=== PATIENT | female | born 1970 | race Caucasian/White ===

== ENCOUNTER 2016-11-21 09:46 | Emergency (ER) | payer MEDICAID, OTHER ==
[~2016-11-21 09:46] MED LIST: AMLO5TAB2 PO; ATOR10TA15 PO; AZAT50 PO; BUSP10TA PO; COLA100C3 PO; DIPHENOXYLATE PO; IPRA17I INH; LISI10TA3 PO; NORC5TAB PO; OMEP20CA2 PO; OXYGENTANK NAS.CANULA; PRED10 PO; SYMB160A INH; VENTAER INH; VITA100018 PO; ZITH250T PO; [UNRECOGNIZED DRUG - OTHER] PO
[2016-11-21 09:51] VITALS: BP 144/67; PULSE 108; RESP 28; TEMP 98.6; O2SAT 84
[2016-11-21] MEDS ORDERED: MAGN400T24 (10:04)
[2016-11-21 10:20] VITALS: RESP 24; O2SAT 90
--- NOTE | 2016-11-21 10:23 | PD ---
HPI Chief Complaint: Respiratory Distress Time Seen by Provider: 10:12 Travel History International Travel<30 days: No Contact w/Intl Traveler<30days: No Traveled to known affect area: No History of Present Illness HPI This is a 46-year-old female who presents to the emergency department with shortness of breath. She has a history of severe COPD and has oxygen at home although she has not needed to use it recently. She says on Wednesday she developed right sided pleuritic chest pain that's been intermittent, moderate severity, feeling like a stabbing in her chest. She has had a little productive cough but she doesn't recall what the sputum looks like. She has felt more short of breath lately. She took her oxygen reading on Wednesday and it was 82 which surprised her. She's not been getting any better so she presents to the emergency department. She does feel like her left ankle is a little bit swollen. She has felt some chills and has been sweating overnight. PFSH Past Medical History Autoimmune Disease: Yes (CROHN'S DISEASE) Anxiety: Yes Depression: No Heart Rhythm Problems: No Cancer: No Cardiovascular Problems: Yes High Cholesterol: Yes Chest Pain: No Congestive Heart Failure: Yes Diabetes: No Gastrointestinal Disorders: Yes GERD: No Genitourinary: No Hiatal Hernia: No Hypertension: Yes Immune Disorder: No Musculoskeletal: No Neurologic: No Psychiatric: No Reproductive: No Respiratory: No Thyroid Disease: No Ulcer: No ?: Not : 2 Para: 2 Tubal Ligation: Yes Past Surgical History Abdominal Surgery: Yes (COLON RESECTION X 2) AICD: No Arteriovenous Shunt: No Cardiac Surgery: No Section: Yes (X 1) Cholecystectomy: Yes Ear Surgery: No Endocrine Surgery: No Eye Surgery: No Genitourinary Surgery: No Gynecologic Surgery: No Insulin Pump: No Joint Replacement: No Oral Surgery: No Pacemaker: No Thoracic Surgery: No Other Surgery: Yes Social History Alcohol Use: No Tobacco Use: Yes (1 PPD) Substance Use: No Allergies-Medications (Allergen,Severity, Reaction): Coded Allergies: Aspirin (Verified Adverse Reaction, Severe, Bleeding, 11/21/16) "I HAVE CROHNS DISEASE" Reported Meds & Prescriptions Reported Meds & Active Scripts Active Atrovent HFA 12.9 GM Inh (Ipratropium [place]) 17 Mcg/Act Aer 2 Puff INH Q6HR PRN [place] (Hydrocodone-Acetaminophen) 5-325 mg Tab 1 Tab PO Q6H PRN Symbicort Inh (Budesonide/Formoterol Fumarate) 160-4.5 Mcg/Act Aero 2 Puff INH Q12HR 30 Days Oxygen tank (Oxygen) 1 Ea Tank 2 Liter [employer] CONTINUOUS Oxygen Concentrator Portable Gaseous 2 L/min via Nasal Cannula Continuous For 99 months npi [id number] Reported Magnesium (Magnesium Oxide) 400 Mg Tablet Omeprazole 20 Mg Cap 20 Mg PO DAILY [Diphenoxylate/A1] 1 PO DAILY Atorvastatin (Atorvastatin Calcium) 10 Mg Tab 10 Mg PO DAILY Buspirone (Buspirone HCl) 10 Mg Tab 10 Mg PO DAILY Review of Systems Except as stated in HPI: all other systems reviewed are Neg Physical Exam Narrative GENERAL: Frail female in no acute distress. SKIN: Focused skin assessment warm and dry. HEAD: Atraumatic. Normocephalic. EYES: Pupils equal and round. No injection or drainage. ENT: Moist mucous membranes NECK: Trachea midline. CARDIOVASCULAR: Regular rate and rhythm. No murmur appreciated. RESPIRATORY: Near absent breath sounds bilaterally, speaking full sentences, appears comfortable GASTROINTESTINAL: Abdomen soft, non-tender, nondistended. MUSCULOSKELETAL: Tender to palpation of the left calf with no obvious swelling NEUROLOGICAL: Awake and alert. No obvious cranial nerve deficits. Moving all extremities. PSYCHIATRIC: Appropriate mood and affect; insight and judgment normal. Data Data Last Documented VS Vital Signs Date Time Temp Pulse Resp B/P Pulse Ox O2 Delivery O2 Flow Rate FiO2 11/21/16 10:20 96 Nasal Cannula 3 11/21/16 10:20 24 11/21/16 09:51 98.6 108 144/67 Orders Complete Blood Count With Diff (11/21/16 10:17) Comprehensive Metabolic Panel (11/21/16 10:17) B-Type Natriuretic Peptide (11/21/16 10:17) D-Dimer (11/21/16 10:17) Troponin I (11/21/16 10:17) Iv Access Insert/Monitor (11/21/16 10:17) Electrocardiogram (11/21/16 10:17) Ecg Monitoring (11/21/16 10:17) Oximetry (11/21/16 10:17) Oxygen Administration (11/21/16 10:17) Chest, Single Ap (11/21/16 10:17) Sodium Chloride 0.9% Flush (Ns Flush) (11/21/16 10:30) Methylprednisolone So Succ Inj (Solumedr (11/21/16 10:30) Albuterol-Ipratropium Neb (Duoneb Neb) (11/21/16 10:30) Labs Laboratory Tests Test 11/21/16 10:20 White Blood Count 7.3 TH/MM3 Red Blood Count 4.38 MIL/MM3 Hemoglobin 13.4 GM/DL Hematocrit 40.4 % Mean Corpuscular Volume 92.2 FL Mean Corpuscular Hemoglobin 30.5 PG Mean Corpuscular Hemoglobin 33.1 % Concent Red Cell Distribution Width 13.1 % Platelet Count 232 TH/MM3 Mean Platelet Volume 8.8 FL Neutrophils (%) (Auto) 82.7 % Lymphocytes (%) (Auto) 8.2 % Monocytes (%) (Auto) 8.4 % Eosinophils (%) (Auto) 0.4 % Basophils (%) (Auto) 0.3 % Neutrophils # (Auto) 6.1 TH/MM3 Lymphocytes # (Auto) 0.6 TH/MM3 Monocytes # (Auto) 0.6 TH/MM3 Eosinophils # (Auto) 0.0 TH/MM3 Basophils # (Auto) 0.0 TH/MM3 CBC Comment DIFF FINAL Differential Comment D-Dimer Quantitative (PE/DVT) 0.28 MG/L FEU Sodium Level 141 MEQ/L Potassium Level 3.3 MEQ/L Chloride Level 100 MEQ/L Carbon Dioxide Level 35.5 MEQ/L Anion Gap 6 MEQ/L Blood Urea Nitrogen 10 MG/DL Creatinine 0.55 MG/DL Estimat Glomerular Filtration 120 ML/MIN Rate Random Glucose 112 MG/DL Calcium Level 8.4 MG/DL Total Bilirubin 0.5 MG/DL Aspartate Amino Transf 21 U/L (AST/SGOT) Alanine Aminotransferase 28 U/L (ALT/SGPT) Alkaline Phosphatase 87 U/L Troponin I LESS THAN 0.02 NG/ML B-Type Natriuretic Peptide 75 PG/ML Total Protein 7.0 GM/DL Albumin 3.4 GM/DL MDM Medical Decision Making Medical Screen Exam Complete: Yes Emergency Medical Condition: Yes Interpretation(s) afebrile, tachycardia, tachypneic, hypoxic on room air No leukocytosis Mild hypokalemia Troponin is normal BNP is 75 D-dimer is 0.28 Last 24 hours Impressions Chest X-Ray 11/21/16 1017 Signed Impressions: Service Date/Time: Monday, November 21, 2016 10:28 - CONCLUSION: No acute disease. Flavio Brooke MD Differential Diagnosis COPD exacerbation, pulmonary embolism, pneumonia, congestive heart failure, myocardial infarction Narrative Course This is a 46 year old female with a history of COPD who is supposed be on oxygen but hasn't needed it in several months who presents to the emergency department with increasing shortness of breath and right sided pleuritic pain. She has very poor air movement on exam. She is hypoxic on room air but has oxygen saturation of 92-95% on 2 L. She was given bronchodilator treatments and steroids. Labs are obtained which demonstrate a normal white blood cell count, a normal BNP and a normal d-dimer. Chest x-ray is negative for pneumonia. She appears much better following bronchodilator treatments. 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 I think patient is appropriate for outpatient therapy as long as she uses her oxygen which she agrees to. Patient will be discharged on prednisone, azithromycin and given a refill on her albuterol inhaler. Diagnosis Primary Impression: COPD exacerbation Patient Instructions: General Instructions Additional Instructions: If you develop severe shortness of breath, chest pain, or difficulty breathing return to the emergency department. Use albuterol every 4 hours for the next 2 days. Then use as needed for wheezing. Complete your course of steroids. Complete your course of antibiotics. Follow up with your primary care physician in 2-3 days if your symptoms have not improved. Med/Other Pt SpecificInfo: Prescription(s) given Scripts Azithromycin 250 Mg Hhs832 Mg PO DIRECTED #6 TAB Take 2 tabs (500 mg) on day 1 then 1 tab daily x 4 days. Prov:Bonnie Malcolm MD 11/21/16 Albuterol 8.5 GM Inh (Proair Hfa 8.5 GM Inh)90 Mcg/Act Aer2 Puff INH Q4-6H PRN ( SHORTNESS OF BREATH) #1 INHALER 108 mcg/actuation Prov:Bonnie Malcolm MD 11/21/16 Prednisone 20 Mg Tab40 Mg PO DAILY 4 Days Prov:Bonnie Malcolm MD 11/21/16 Disposition: 01 DISCHARGE HOME Condition: Stable Bonnie Malcolm MD Nov 21, 2016 10:23
[2016-11-21] MEDS: RESP: ALBUTEROL 2.5 MG/IPRATROPIUM 0.5 MG NEB (SCH) INH (10:27)
[2016-11-21] MEDS ORDERED: methylPREDNISolone SOD SUCC 125 MG/2 ML VIAL IVP ONE (10:30)
[2016-11-21] MEDS ORDERED: SODIUM CHLORIDE 0.9% FLUSH 10 ML FLUSH IVF PRN (10:30)
--- NOTE | 2016-11-21 10:32 | RADRPT ---
EXAM DATE/TIME: 11/21/2016 10:28 [facility] COMPARISON: CHEST SINGLE AP, March 19, 2016, 18:39. INDICATIONS : Right sided chest pain. MEDICAL HISTORY : None. SURGICAL HISTORY : None. ENCOUNTER: Initial ACUITY: 3 days PAIN SCORE: 9/10 LOCATION: Right chest FINDINGS: Hyperinflation. Heart and mediastinal contours are normal. The lungs are clear. Osseous structures ar e intact. CONCLUSION: No acute disease. Flavio Brooke MD on November 21, 2016 at 10:29 Board Certified Radiologist. This report was verified electronically.
[2016-11-21 10:45] LABS: AUTOMATED NEUTROPHIL # 6.1 TH/MM3 (1.8-7.7); BASOPHIL % 0.3 % (0.0-2.0); EOSINOPHIL % 0.4 % (0.0-4.0); HEMATOCRIT 40.4 % (35.0-46.0); HEMO FLAGS DIFF FINAL; LYMPH % 8.2 % (9.0-44.0); LYMPHOCYTE # 0.6 TH/MM3 (1.0-4.8); MEAN CELL VOLUME 92.2 FL (80.0-100.0); MEAN CORPUSCULAR HEMOGLOBIN 30.5 PG (27.0-34.0); MEAN CORPUSCULAR HGB CONC 33.1 % (32.0-36.0); MONO % 8.4 % (0.0-8.0); NEUT % 82.7 % (16.0-70.0); PLATELET COUNT 232 TH/MM3 (150-450); RED BLOOD COUNT 4.38 MIL/MM3 (4.00-5.30); RED CELL DISTRIBUTION WIDTH 13.1 % (11.6-17.2); WHITE BLOOD COUNT 7.3 TH/MM3 (4.0-11.0)
[2016-11-21 10:57] LABS: ALT (GPT) 28 U/L (10-53); ANION GAP 6 MEQ/L (5-15); AST (GOT) 21 U/L (15-37); BICARBONATE 35.5 MEQ/L (21.0-32.0); BLOOD UREA NITROGEN 10 MG/DL (7-18); CHLORIDE 100 MEQ/L (98-107); GLOMERULAR FILTRATION RATE 120 ML/MIN (>89); POTASSIUM 3.3 MEQ/L (3.5-5.1); SODIUM (NA) 141 MEQ/L (136-145)
[2016-11-21 11:01] LABS: ALKALINE PHOSPHATASE 87 U/L (45-117); TOTAL BILIRUBIN ADULT 0.5 MG/DL (0.2-1.0)
[2016-11-21] MEDS ORDERED: AZIT250T3 PO (11:32)
[2016-11-21] MEDS ORDERED: PRED20 PO (11:32)
[2016-11-21] MEDS ORDERED: ALBUAER3 INH (11:32)
[2016-11-21 11:35] VITALS: BP 130/77; TEMP 97.8
--- NOTE | 2016-11-22 13:31 | EKG ---
Date Performed: 11/21/2016 Time Performed: 10:39:00 PTAGE: 46 years EKG: Sinus rhythm ST DEVIATION AND MODERATE T-WAVE ABNORMALITY, CONSIDER ANTERIOR ISCHEMIA Probable left ventricular h ypertrophy. Compared to previous tracing, there's been an increase in left ventricular voltage and th e tracing now meets criteria for left ventricular hypertrophy. There's been some variation in the ST- T wave changes. ABNORMAL ECG PREVIOUS TRACING : 03/19/2016 20.37 DOCTOR: Olimpia Fernandez Interpretating Date/Time 11/22/2016 13:27:44
== END 2016-11-21 11:35 | disposition home or self-care (01) ==
LOC: NEPE 09:46
DX: J44.1 Chronic obstructive pulmonary disease with (acute) exacerbation (principal); R07.81 Pleurodynia; M79.662 Pain in left lower leg; R61 Generalized hyperhidrosis; R68.83 Chills (without fever); R94.31 Abnormal electrocardiogram [ECG] [EKG]; I10 Essential (primary) hypertension; E78.00 Pure hypercholesterolemia, unspecified; F17.200 Nicotine dependence, unspecified, uncomplicated; Z87.09 Personal history of other diseases of the respiratory system; Z86.2 Personal history of diseases of the blood and blood-forming organs and certain disorders involving the immune mechanism; Z86.79 Personal history of other diseases of the circulatory system; Z87.19 Personal history of other diseases of the digestive system
CPT/HCPCS: 71010; 80053; 83880; 84484; 85025; 85379; 93005; 94640; 94664; 96374; 99285; J2930

== ENCOUNTER → 2017-02-10 | Outpatient (CLI) | payer OTHER ==
[~2017-02-10] MED LIST changes: +ALBUAER3 INH; -AMLO5TAB2 PO; -AZAT50 PO; +AZIT250T3 PO; -COLA100C3 PO; -LISI10TA3 PO; +MAGN400T24; -PRED10 PO; +PRED20 PO; -VENTAER INH; -VITA100018 PO; -ZITH250T PO
--- NOTE | 2017-02-10 10:55 | RADRPT ---
EXAM DATE/TIME: 02/10/2017 10:21 [facility] COMPARISON: CT PULMONARY ANGIOGRAM, March 19, 2016, 22:24. CHEST SINGLE AP, March 19, 2016, 18:39. CHEST SI NGLE AP, November 21, 2016, 10:28. INDICATIONS : Short of breath. MEDICAL HISTORY : Hypercholesterolemia. Congestive heart failure. Crohn's disease. SURGICAL HISTORY : Cholecystectomy. section. section. Colon resection. ENCOUNTER: Initial ACUITY: 1 day PAIN SCORE: 0/10 LOCATION: chest FINDINGS: PA and lateral views of the chest demonstrate the lungs to be symmetrically aerated without evidence of mass, infiltrate or effusion. The cardiomediastinal contours are unremarkable. Osseous structure s are intact. CONCLUSION: 1. No acute cardiopulmonary findings. Hill Shah MD on February 10, 2017 at 10:53 Board Certified Radiologist. This report was verified electronically.
--- NOTE | 2017-02-15 10:00 | RSPPFT ---
DATE OF PROCEDURE: 02/10/17 COMMENTS: Spirometry with FVC of 1.0, FEV1 of 0.4, FEV1/FVC ratio at 41%. Slow vital capacity is 38% of predicted. TLC is 80%. Diffusion capacity is 27% and normal when corrected for alveolar volume. IMPRESSION: 1. Very severe airways obstruction. 2. Non-significant response to acutely inhaled bronchodilator. 3. No evidence of airways restriction. 4. Reduced diffusion capacity.
== END ==
LOC: HRSP 08:50
PROVIDERS: ATTEND Internal Medicine Sleep Medicine
DX: J44.9 Chronic obstructive pulmonary disease, unspecified (principal); R06.09 Other forms of dyspnea
CPT/HCPCS: 71020; 94060; 94620; 94726; 94729

== ENCOUNTER 2017-05-03 15:39 | Emergency (ER) | payer OTHER ==
[2017-05-03 15:41] VITALS: BP 164/91; PULSE 112; RESP 18; TEMP 98.2; O2SAT 91
--- NOTE | 2017-05-03 16:43 | PD ---
HPI Chief Complaint: GI Complaint Time Seen by Provider: 16:35 Travel History International Travel<30 days: No Contact w/Intl Traveler<30days: No Traveled to known affect area: No History of Present Illness HPI Please see initial female with history of Crohn's disease with recurrent history of GERD with esophagitis. Patient states recent insurance change which has required her to stop her omeprazole 2 weeks ago, for 1 week, and then she restarted it 20 mg once daily for 1 week, with worsening symptoms of reflux and esophagitis. 2 days ago to increase her dose to 20 mg twice a day. Patient states her symptoms continue to be terrible and feelings of reflux and choking at times. She denies fever, chills, or diarrhea. No changes in her bowels. Patient is seen by a dry drug worker in [place], but has not seen him in some time due to insurance change. Patient states she has had an endoscopy approximately 2 years ago. She is allergic to aspirin. PFSH Past Medical History Autoimmune Disease: Yes (CROHN'S DISEASE) Anxiety: Yes Depression: No Heart Rhythm Problems: No Cancer: No Cardiovascular Problems: Yes High Cholesterol: Yes Chest Pain: No Congestive Heart Failure: Yes Diabetes: No Gastrointestinal Disorders: Yes GERD: No Genitourinary: No Hiatal Hernia: No Hypertension: Yes Immune Disorder: No Musculoskeletal: No Neurologic: No Psychiatric: No Reproductive: No Respiratory: No Thyroid Disease: No Ulcer: No : 2 Para: 2 Tubal Ligation: Yes Past Surgical History Abdominal Surgery: Yes (COLON RESECTION X 2) AICD: No Arteriovenous Shunt: No Cardiac Surgery: No Section: Yes (X 1) Cholecystectomy: Yes Ear Surgery: No Endocrine Surgery: No Eye Surgery: No Genitourinary Surgery: No Gynecologic Surgery: No Insulin Pump: No Joint Replacement: No Oral Surgery: No Pacemaker: No Thoracic Surgery: No Other Surgery: Yes Social History Alcohol Use: No Tobacco Use: Yes (1 PPD) Substance Use: No Allergies-Medications (Allergen,Severity, Reaction): Coded Allergies: aspirin (Unverified Adverse Reaction, Severe, Bleeding, 01/05/17) "I HAVE CROHNS DISEASE" Reported Meds & Prescriptions Reported Meds & Active Scripts Active Azithromycin 250 Mg Tab 250 Mg PO DIRECTED Take 2 tabs (500 mg) on day 1 then 1 tab daily x 4 days. Proair Hfa 8.5 GM Inh (Albuterol Sulfate) 90 Mcg/Act Aer 2 Puff INH Q4-6H PRN 108 mcg/actuation Prednisone 20 Mg Tab 40 Mg PO DAILY 4 Days Atrovent HFA 12.9 GM Inh (Ipratropium [place]) 17 Mcg/Act Aer 2 Puff INH Q6HR PRN [place] (Hydrocodone-Acetaminophen) 5-325 mg Tab 1 Tab PO Q6H PRN Symbicort Inh (Budesonide/Formoterol Fumarate) 160-4.5 Mcg/Act Aero 2 Puff INH Q12HR 30 Days Oxygen tank (Oxygen) 1 Ea Tank 2 Liter [employer] CONTINUOUS Oxygen Concentrator Portable Gaseous 2 L/min via Nasal Cannula Continuous For 99 months npi [id number] Reported Magnesium (Magnesium Oxide) 400 Mg Tablet Omeprazole 20 Mg Cap 20 Mg PO DAILY [Diphenoxylate/A1] 1 PO DAILY Atorvastatin (Atorvastatin Calcium) 10 Mg Tab 10 Mg PO DAILY Buspirone (Buspirone HCl) 10 Mg Tab 10 Mg PO DAILY Review of Systems Except as stated in HPI: all other systems reviewed are Neg General / Constitutional: No: Fever Eyes: No: Visual changes HENT: No: Headaches Cardiovascular: No: Chest Pain or Discomfort Respiratory: No: Shortness of Breath Gastrointestinal: Positive: Nausea, Vomiting, Abdominal Pain, Indigestion, Dysphagia, Loss of Appetite (history of present illness), Other, No: Diarrhea ( twice in the last 3 days.), Hematemesis, Hematochezia, Constipation, Changes in Bowel Habits Genitourinary: No: Dysuria Musculoskeletal: No: Pain Skin: No Rash Neurologic: No: Weakness Psychiatric: No: Depression Endocrine: No: Polydipsia Hematologic/Lymphatic: No: Easy Bruising Physical Exam Narrative GENERAL: Patient appears in mild distress. SKIN: Warm and dry. Normal color. Normal turgor. HEAD: Atraumatic. Normocephalic. EYES: Pupils equal and round. No scleral icterus. No injection or drainage. ENT: No nasal bleeding or discharge. Mucous membranes pink and moist. Pharynx is clear. Airway is patent. No significant erythema is noted. NECK: Trachea midline. Supple and nontender. CARDIOVASCULAR: Regular rate and rhythm. RESPIRATORY: No accessory muscle use. Clear to auscultation. Breath sounds equal bilaterally. GASTROINTESTINAL: Abdomen soft, moderate epigastric tenderness without rebound, nondistended. Hepatic and splenic margins not palpable. No CVA tenderness. MUSCULOSKELETAL: Extremities without clubbing, cyanosis, or edema. No obvious deformities. NEUROLOGICAL: Awake and alert. No obvious cranial nerve deficits. Motor grossly within normal limits. Five out of 5 muscle strength in the arms and legs. Normal speech. PSYCHIATRIC: Appropriate mood and affect; insight and judgment normal. Data Data Last Documented VS Vital Signs Date Time Temp Pulse Resp B/P (MAP) Pulse Ox O2 Delivery O2 Flow Rate FiO2 05/03/17 16:37 18 05/03/17 15:41 98.2 112 164/91 (115) 91 Nasal Cannula 3.00 Orders Orders Al-Mag Hy-Si 40-40-4 Mg/Ml Liq (Mag-Al P (05/03/17 16:45) Lidocaine 2% Viscous (Xylocaine 2% Visco (05/03/17 16:45) Sucralfate Liq (Carafate Liq) (05/03/17 16:45) Pantoprazole (Protonix) (05/03/17 16:45) MDM Medical Decision Making Medical Screen Exam Complete: Yes Emergency Medical Condition: Yes Medical Record Reviewed: Yes Differential Diagnosis Recurrent reflux. Esophagitis. GERD. Narrative Course Patient is felt to be medically stable at time of exam. Patient is given GI cocktail by mouth. Patient is given 1 g sulfate liquid by mouth. Patient is given 40 mg pantoprazole by mouth. Patient is improved after above treatment plan. She will be continued on omeprazole 40 mg daily. Patient will start sulfate 1 g 4 times a day as directed #120. Patient given 5% lidocaine 5 mL 4 times a day when necessary next with Maalox. #120 mL 2 refills. Patient to follow with dry drug worker as discussed. Patient can return to the emergency department if symptoms worsen. Diagnosis Primary Impression: GERD with esophagitis Referrals: Food Chemist call for appointment Patient Instructions: 2 Gram Sodium Diet (DC), Corrosive Esophagitis (ED), Diet for Stomach Ulcers and Gastritis (ED), Gastroesophageal Reflux Disease (DC) , General Instructions Additional Instructions: Patient is improved after above treatment plan. She will be continued on omeprazole 40 mg daily. Patient will start sulfate 1 g 4 times a day as directed #120. Patient given 5% lidocaine 5 mL 4 times a day when necessary next with Maalox. #120 mL 2 refills. Patient to follow with dry drug worker as discussed. Patient can return to the emergency department if symptoms worsen. Med/Other Pt SpecificInfo: Prescription(s) given Scripts Omeprazole (Omeprazole) 40 Mg Cap 40 MG PO DAILY, #30 CAP 0 Refills Prov: Ahn Davis DO 05/03/17 Sucralfate Liq (Carafate Liq) 1 Gm/10 Ml Susp 1 GM PO QID for Duodenal ulcer, #1200 ML 0 Refills on empty stomach Prov: Anh Davis DO 05/03/17 Lidocaine Viscous Liq (Lidocaine Viscous Liq) 2 % Liqd 5 ML SWISH-SWAL QID Y for PAIN, #120 ML 2 Refills Mixed with Maalox as needed Prov: Anh Davis DO 05/03/17 Disposition: 01 DISCHARGE HOME Condition: Stable Jan Wang May 03, 2017 16:42
[2017-05-03] MEDS ORDERED: PANTOPRAZOLE SOD 40 MG DELAYED RELEASE TAB PO ONE (16:45)
[2017-05-03] MEDS ORDERED: LIDOCAINE VISCOUS 2% SOLN 15 ML UDC PO ONE (16:45)
[2017-05-03] MEDS ORDERED: SUCRALFATE 1 GM/10 ML CUP PO ONE (16:45)
[2017-05-03] MEDS ORDERED: ALUMINUM/MAGNESIUM/SIMETH 30 ML CUP PO ONE (16:45)
[2017-05-03] MEDS ORDERED: CARA1SUS3 PO (17:45)
[2017-05-03] MEDS ORDERED: OMEP40CA2 PO (17:45)
[2017-05-03] MEDS ORDERED: LIDO1SOL8 SWISH-SWAL (17:45)
== END 2017-05-03 18:18 | disposition home or self-care (01) ==
LOC: NEPD 15:39
DX: K21.0 Gastro-esophageal reflux disease with esophagitis (principal); E78.00 Pure hypercholesterolemia, unspecified; I11.0 Hypertensive heart disease with heart failure; I50.9 Heart failure, unspecified; F17.200 Nicotine dependence, unspecified, uncomplicated
CPT/HCPCS: 99284